=== PATIENT | male | born 1970 | race Two or more races ===

== ENCOUNTER 2018-12-04 06:59 | Emergency (ER) | payer MEDICAID ==
[~2018-12-04] VITALS: Ht 172.7 cm; Wt 77.1 kg
[~2018-12-04 06:59] MED LIST: NORPTMEDS CO
[2018-12-04 08:00] LABS: Urine Bacteria NONE SEEN /hpf (None Seen); Urine Blood Negative /uL (Negative); Urine Mucus FEW (None Seen); Urine Specific Gravity 1.031 (1.001-1.035); Urine WBC 2 /hpf (0 - 3)
[2018-12-04 09:09] VITALS: BP 113/73
[2018-12-04] MEDS ORDERED: METHOCARBAMOL 500 MG TAB PO ONE (09:30)
[2018-12-04] MEDS ORDERED: KETOROLAC TROMETH 60MG/2ML VIAL IM ONE (09:30)
== END 2018-12-04 10:06 | disposition home or self-care (01) ==
LOC: ER 06:59
DX: S33.5XXA Sprain of ligaments of lumbar spine, initial encounter (principal); X50.1XXA Overexertion from prolonged static or awkward postures, initial encounter; Y93.89 Activity, other specified; Y92.89 Other specified places as the place of occurrence of the external cause; Y99.8 Other external cause status
CPT/HCPCS: 72070; 72100; 81001; 96372; 99284; J1885